=== PATIENT | male | born 1960 | race Caucasian/White ===

== ENCOUNTER 2024-01-27 18:31 | Emergency (ER) | payer BC ==
[~2024-01-27] VITALS: Ht 190.5 cm; Wt 172.4 kg
[2024-01-27 18:44] VITALS: BP_SYST 108; PULSE 92; RESP 18; TEMP 99; O2SAT 94
[2024-01-27] MEDS ORDERED: CEPH-548 PO (20:43)
[2024-01-27] MEDS ORDERED: DICL20GE TP (20:43)
[2024-01-27] MEDS: cephALEXin 500 MG CAPSULE PO ONE (20:50)
== END 2024-01-27 20:55 | disposition home or self-care (01) ==
LOC: SED 18:31
DX: L03.115 Cellulitis of right lower limb (principal); I10 Essential (primary) hypertension; E66.01 Morbid (severe) obesity due to excess calories; Z68.42 Body mass index [BMI] 45.0-49.9, adult; Z86.711 Personal history of pulmonary embolism
CPT/HCPCS: 93971; 99284